=== PATIENT | male | born 1965 | race Caucasian/White ===

== ENCOUNTER 2018-02-10 19:13 | Emergency (ER) | payer MEDICAID ==
[2018-02-10 14:36] LABS: HEMATOCRIT 39.7 % (42.0-52.0); HEMOGLOBIN 13.7 g/dl (13.5-17.5); MEAN CORPUSCULAR HEMOGLOBIN 34.1 pg (27.0-33.0); MEAN CORPUSCULAR HGB CONC 34.5 g/dl (32.0-36.5); MEAN CORPUSCULAR VOLUME 98.8 fl (80.0-96.0); PLATELET COUNT, AUTOMATED 155 10^3/uL (150-450); RED BLOOD COUNT 4.02 10^6/uL (4.30-6.10); RED CELL DISTRIBUTION WIDTH 12.8 % (11.5-14.5); WHITE BLOOD COUNT 6.4 10^3/uL (4.0-10.0)
[2018-02-10 15:01] LABS: ALBUMIN 3.7 GM/DL (3.2-5.2); ALBUMIN/GLOBULIN RATIO 0.69 (1.00-1.93); ALKALINE PHOSPHATASE 62 U/L (45-117); ALT/SGPT 74 U/L (12-78); ANION GAP 7 MEQ/L (8-16); AST/SGOT 86 U/L (7-37); BILIRUBIN,DIRECT 0.2 MG/DL (0.0-0.2); BILIRUBIN,TOTAL 0.5 MG/DL (0.2-1.0); BLOOD UREA NITROGEN 3 MG/DL (7-18); CALCIUM LEVEL 9.1 MG/DL (8.5-10.1); CARBON DIOXIDE LEVEL 28 MEQ/L (21-32); CHLORIDE LEVEL 103 MEQ/L (98-107); CREATININE FOR GFR 0.65 MG/DL (0.70-1.30); ETHYL ALCOHOL (ETHANOL) 0.264 % (0.000-0.010); GLOMERULAR FILTRATION RATE > 60.0 (>56); GLUCOSE, FASTING 86 MG/DL (70-100); POTASSIUM SERUM 4.1 MEQ/L (3.5-5.1); SALICYLATE LEVEL 2.2 MG/DL (5.0-30.0); SODIUM LEVEL 138 MEQ/L (136-145); TOTAL PROTEIN 9.1 GM/DL (6.4-8.2)
[2018-02-10 15:05] LABS: ACETAMINOPHEN LEVEL < 2.0 UG/ML (10.0-30.0)
[2018-02-10 15:33] LABS: AMPHETAMINES LEVEL URINE NEGATIVE (NEGATIVE); BARBITURATES URINE NEGATIVE (NEGATIVE); BENZODIAZEPINES URINE NEGATIVE (NEGATIVE); CANNABINOIDS URINE POSITIVE (NEGATIVE); COCAINE METABOLITE URINE POSITIVE (NEGATIVE); METHADONE URINE NEGATIVE (NEGATIVE); OPIATES URINE NEGATIVE (NEGATIVE); PHENCYCLIDINE URINE NEGATIVE (NEGATIVE)
[2018-02-10 15:57] LABS: CPK CREATINE PHOSPHOKINASE 221 U/L (39-308)
[2018-02-10] MEDS: OXAZEPAM 15 MG CAP PO (18:50)
== END 2018-02-10 20:18 | disposition home or self-care (01) ==
LOC: M ED 19:13
DX: F10.129 Alcohol abuse with intoxication, unspecified (principal); F19.10 Other psychoactive substance abuse, uncomplicated
CPT/HCPCS: 93005

== ENCOUNTER 2018-03-19 14:38 | Emergency (ER) | payer MEDICAID | END 2018-03-19 17:22 | disposition home or self-care (01) | LOC: M ED 14:38 | DX: F31.9 Bipolar disorder, unspecified (principal); F10.11 Alcohol abuse, in remission; J44.9 Chronic obstructive pulmonary disease, unspecified; F17.210 Nicotine dependence, cigarettes, uncomplicated | CPT/HCPCS: 99284 ==

== ENCOUNTER 2018-07-19 08:07 | Emergency (ER) | payer OTHER ==
[~2018-07-19] VITALS: Ht 185.4 cm; Wt 83.9 kg
[2018-07-19] MEDS ORDERED: B121000T PO (08:35)
[2018-07-19] MEDS ORDERED: MELO15TA28 PO (08:35)
[2018-07-19 09:00] LABS: BASO # 0.1 10^3/uL (0.0-0.2); BASO % 1.6 % (0.0-1.0); EOS # 0.1 10^3/uL (0.0-0.50); HEMATOCRIT 40.9 % (42.0-52.0); HEMOGLOBIN 14.1 g/dl (13.5-17.5); LYMPH # 2.2 10^3/uL (1.5-4.5); LYMPH % 42.4 % (24.0-44.0); MEAN CORPUSCULAR HEMOGLOBIN 33.8 pg (27.0-33.0); MEAN CORPUSCULAR HGB CONC 34.5 g/dl (32.0-36.5); MEAN CORPUSCULAR VOLUME 98.1 fl (80.0-96.0); MONO # 0.4 10^3/uL (0.0-0.8); MONO % 8.4 % (0.0-5.0); NEUTROPHILS # 2.4 10^3/uL (1.8-7.7); NEUTROPHILS % 46.4 % (36.0-66.0); PLATELET COUNT, AUTOMATED 155 10^3/uL (150-450); RED BLOOD COUNT 4.17 10^6/uL (4.30-6.10); WHITE BLOOD COUNT 5.1 10^3/uL (4.0-10.0)
--- NOTE | 2018-07-19 09:13 | REP ---
Clinical: Altered mental status . Comparison: None . Findings: The ventricles, sulci, and cisterns are normal in position and appearance. Rudd-white differentiation is maintained. No acute intracranial hemorrhage, mass/mass effect, pathology or trauma/injury. No evidence for acute infarction. No extra-axial fluid collection. Calvarium is intact. Paranasal sinuses and mastoid air cells are clear. Impression: Normal noncontrast head CT. No evidence for acute intracranial pathology or trauma/injury. Electronically Signed by William Qureshi MD 07/19/2018 09:03 A
--- NOTE | 2018-07-19 09:15 | REP ---
Clinical: Trauma . Technique: Axial noncontrast images from the skull base to the thoracic inlet with coronal and sagittal re-formations Findings: Sagittal reconstructions suggest 2 mm of chronic retrolisthesis at the C3-4 level. Advanced degenerative disc osteophyte complex at C6-7 includes osteophytosis, subchondral sclerosis and heterogeneity with disc space narrowing and scattered uncovertebral facet hypertrophy. Moderate degenerative changes are noted throughout the remainder of the cervical spine including marginal spurring with minimal endplate sclerosis. There is no evidence for acute fracture / compression injury or subluxation. Spinal canal is patent. Posterior elements are intact. Paravertebral soft tissues are normal. Impression: Multilevel degenerative spondylosis. No evidence for acute trauma/injury. Electronically Signed by William Qureshi MD 07/19/2018 09:06 A
--- NOTE | 2018-07-19 09:18 | REP ---
Clinical: Trauma. Technique: AP, lateral, bilateral oblique views of the left ankle. Findings: Comminuted fracture dislocation identified of the distal tibial and fibular diaphyses with mild displacement and angulation. Impression: Comminuted fracture dislocation of the distal tibial and fibular diaphyses. Electronically Signed by William Qureshi MD 07/19/2018 09:09 A
--- NOTE | 2018-07-19 09:20 | REP ---
Clinical: Trauma. Technique: AP and lateral views of the proximal to mid tibia / fibula. Findings: In conjunction with ankle radiograph series, a comminuted displaced fractures of the distal tibial and fibular diaphyses are identified. Impression: Comminuted fracture dislocation of the distal tibial and fibular diaphyses. Electronically Signed by William Qureshi MD 07/19/2018 09:12 A
--- NOTE | 2018-07-19 09:22 | REP ---
Clinical: Trauma . Comparison: None . Findings: The mediastinum and cardiac silhouette are stable and within normal limits for portable technique. The lung altamirano are clear without acute consolidation, effusion, or pneumothorax. Subtle right rib fractures of indeterminate age requires correlation. Impression: No acute mediastinal or pleuroparenchymal process. Subtle right rib fractures of indeterminate age. Electronically Signed by William Qureshi MD 07/19/2018 09:14 A
[2018-07-19 09:36] LABS: ACETAMINOPHEN LEVEL < 2.0 UG/ML (10.0-30.0); ALT/SGPT 88 U/L (12-78); BILIRUBIN,DIRECT < 0.1 MG/DL (0.0-0.2); BILIRUBIN,TOTAL 0.4 MG/DL (0.2-1.0); BLOOD UREA NITROGEN 5 MG/DL (7-18); CALCIUM LEVEL 8.3 MG/DL (8.5-10.1); CARBON DIOXIDE LEVEL 25 MEQ/L (21-32); CHLORIDE LEVEL 100 MEQ/L (98-107); CREATININE FOR GFR 0.69 MG/DL (0.70-1.30); ETHYL ALCOHOL (ETHANOL) 0.384 % (0.000-0.010); GLOMERULAR FILTRATION RATE > 60.0 (>56); GLUCOSE, FASTING 89 MG/DL (70-100); POTASSIUM SERUM 4.3 MEQ/L (3.5-5.1); SALICYLATE LEVEL 2.8 MG/DL (5.0-30.0); SODIUM LEVEL 136 MEQ/L (136-145); TOTAL PROTEIN 8.4 GM/DL (6.4-8.2)
[2018-07-19] MEDS ORDERED: NS 1,000 ML IV SCH (09:45)
[2018-07-19 11:38] VITALS: BP 131/80
[2018-07-19 12:14] LABS: AMPHETAMINES LEVEL URINE NEGATIVE (NEGATIVE); BARBITURATES URINE NEGATIVE (NEGATIVE); BENZODIAZEPINES URINE NEGATIVE (NEGATIVE); CANNABINOIDS URINE POSITIVE (NEGATIVE); COCAINE METABOLITE URINE POSITIVE (NEGATIVE); METHADONE URINE NEGATIVE (NEGATIVE); OPIATES URINE NEGATIVE (NEGATIVE); PHENCYCLIDINE URINE NEGATIVE (NEGATIVE)
== END 2018-07-19 11:43 | disposition short-term general hospital (02) ==
LOC: EDBD 08:07 → M ED 08:07
DX: S82.832A Other fracture of upper and lower end of left fibula, initial encounter for closed fracture (principal); W01.0XXA Fall on same level from slipping, tripping and stumbling without subsequent striking against object, initial encounter; Y92.481 Parking lot as the place of occurrence of the external cause; Y90.1 Blood alcohol level of 20-39 mg/100 ml; J44.9 Chronic obstructive pulmonary disease, unspecified; F10.10 Alcohol abuse, uncomplicated; F17.210 Nicotine dependence, cigarettes, uncomplicated
CPT/HCPCS: 36415; 70450; 71045; 72125; 73590; 73610; 80048; 80076; 80307; 84443; 85025; 93041; 94760; 99285; G0480

== ENCOUNTER 2018-11-02 18:51 | Emergency (ER) | payer OTHER ==
[~2018-11-02] VITALS: Ht 182.9 cm; Wt 104.5 kg
[~2018-11-02 18:51] MED LIST: B121000T PO; MELO15TA28 PO
[2018-11-02] MEDS ORDERED: GABA-843 (18:56)
[2018-11-02] MEDS ORDERED: KETOROLAC 60 MG/2 ML VIAL (J1885) IM ONE (19:45)
[2018-11-02 20:29] VITALS: BP 145/81
--- NOTE | 2018-11-03 05:08 | REP ---
Clinical: Pain with recent surgery. Technique: AP and lateral views of the left tibia / fibula. Findings: Healing fractures involving the distal tibial and fibular shafts with callus formation and periosteal reaction noted. Orthopedic hardware appears to be in satisfactory position. Age-related degenerative changes at the knee and ankle joint noted. Impression: Appropriate healing. No obvious acute findings. Electronically Signed by William Qureshi MD 11/03/2018 04:59 A
== END 2018-11-02 20:36 | disposition left against medical advice (07) ==
LOC: M ED 18:51
DX: S82.832D Other fracture of upper and lower end of left fibula, subsequent encounter for closed fracture with routine healing (principal); S82.302D Unspecified fracture of lower end of left tibia, subsequent encounter for closed fracture with routine healing; M17.12 Unilateral primary osteoarthritis, left knee; M19.072 Primary osteoarthritis, left ankle and foot; R05 Cough; F17.210 Nicotine dependence, cigarettes, uncomplicated; Z79.899 Other long term (current) drug therapy
CPT/HCPCS: 73590; 96372; 99281; J1885

== ENCOUNTER → 2018-11-26 | Outpatient (CLI) | payer MEDICAID ==
[~2018-11-26] MED LIST changes: +GABA-843
== END ==
LOC: M OUTALCOH 08:40
PROVIDERS: ATTEND Psychiatry & Neurology Psychiatry
DX: F10.20 Alcohol dependence, uncomplicated (principal)

== ENCOUNTER 2018-12-03 10:08 | Outpatient (RCR) | payer MEDICAID | END 2018-12-14 | LOC: M OUTALCOH 10:08 | PROVIDERS: ATTEND Psychiatry & Neurology Psychiatry | DX: F10.20 Alcohol dependence, uncomplicated (principal) ==

== ENCOUNTER 2022-11-09 00:17 | Emergency (ER) | payer MEDICAID ==
[~2022-11-09] VITALS: Ht 182.9 cm; Wt 81.8 kg
[~2022-11-09 00:17] MED LIST changes: +GABA-282; -GABA-843
[2022-11-09 00:23] VITALS: BP_SYST 140
== END 2022-11-09 03:13 | disposition left against medical advice (07) ==
LOC: M ED 00:17 → EDBD 00:17 → M ED 03:13
DX: G47.00 Insomnia, unspecified (principal); Z53.21 Procedure and treatment not carried out due to patient leaving prior to being seen by health care provider

== ENCOUNTER 2022-12-13 09:22 | Inpatient (IN) | payer MEDICAID, OTHER ==
[~2022-12-13] VITALS: Ht 182.9 cm; Wt 83.6 kg
[~2022-12-13 09:22] MED LIST changes: +FOLIC ACID 1MG TAB PO SCH; +MULTIVITAMINS/MINERALS THERAP 1 TAB PO SCH; +THIAMINE 100 MG TAB PO SCH
[2022-12-13 09:50] LABS: VENOUS BASE EXCESS 1.9 (-2.0-2.0); VENOUS HCO3 26.2 MMOL/L (23.0-27.0); VENOUS O2 SATURATION 79.4 % (60.0-80.0); VENOUS PARTIAL PRESSURE CO2 40.1 mmHg (38.0-50.0); VENOUS PARTIAL PRESSURE O2 47.5 mmHg (30.0-50.0); VENOUS PH 7.433 UNITS (7.330-7.430); VENOUS STANDARD HCO3 25.7 MMOL/L; VENOUS TOTAL CO2 27.4 MMOL/L (24.0-28.0)
[2022-12-13 09:55] LABS: BASO # 0.1 10^3/uL (0.0-0.2); BASO % 0.4 % (0.0-1.0); EOS % 0.1 % (0.0-3.0); HEMATOCRIT 36.9 % (42.0-52.0); HEMOGLOBIN 12.7 g/dl (13.5-17.5); LYMPH # 1.4 10^3/uL (1.5-5.0); LYMPH % 8.9 % (24.0-44.0); MEAN CORPUSCULAR HEMOGLOBIN 32.2 pg (27.0-33.0); MEAN CORPUSCULAR HGB CONC 34.4 g/dl (32.0-36.5); MEAN CORPUSCULAR VOLUME 93.4 fl (80.0-96.0); MONO # 1.1 10^3/uL (0.0-0.8); MONO % 7.5 % (2.0-8.0); NEUTROPHILS # 12.6 10^3/uL (1.5-8.5); NEUTROPHILS % 82.4 % (36.0-66.0); PLATELET COUNT, AUTOMATED 436 10^3/uL (150-450); RED BLOOD COUNT 3.95 10^6/uL (4.30-6.10); WHITE BLOOD COUNT 15.2 10^3/uL (4.0-10.0)
[2022-12-13 10:19] LABS: OSMOLALITY SERUM 280 MOSM/KG (275-295)
[2022-12-13 10:23] LABS: ALBUMIN 1.7 G/DL (3.2-5.2); ALKALINE PHOSPHATASE 74 U/L (46-116); ALT/SGPT 46 U/L (7.0-40); AST/SGOT 100 U/L (<34); BILIRUBIN,DIRECT 0.2 MG/DL (<0.4); BILIRUBIN,TOTAL 0.4 MG/DL (0.3-1.2); BLOOD UREA NITROGEN 7 MG/DL (9-23); CALCIUM LEVEL 8.2 MG/DL (8.5-10.1); CARBON DIOXIDE LEVEL 26 MMOL/L (20-31); CHLORIDE LEVEL 95 MMOL/L (98-107); GLOMERULAR FILTRATION RATE > 60.0 (>56); GLUCOSE, FASTING 111 MG/DL (60-100); POTASSIUM SERUM 3.1 MMOL/L (3.5-5.1); SODIUM LEVEL 128 MMOL/L (136-145); TOTAL PROTEIN 6.6 G/DL (5.7-8.2)
[2022-12-13 10:28] LABS: THYROID STIMULATING HORMONE 1.317 uIU/ML (0.55-4.78)
[2022-12-13] MEDS ORDERED: METOPROLOL TART 25 MG TABLET PO ONE (10:45)
[2022-12-13] MEDS: METOPROLOL 5 MG/5 ML VIAL IV SCH ×3 (11:04→14:57)
[2022-12-13 11:13] LABS: MAGNESIUM LEVEL 0.9 MG/DL (1.8-2.4)
[2022-12-13] MEDS ORDERED: MAG SULF 1GM/100ML (MAG RUN) 1 GM in IV 1 EA IV ONE ×3 (11:15→14:55)
[2022-12-13] MEDS ORDERED: LORazepam 2 MG TAB PO PRN (11:45)
[2022-12-13] MEDS ORDERED: NS 1,000 ML IV SCH (11:45)
[2022-12-13] MEDS ORDERED: POTASSIUM CHLORIDE 10MEQ SR TABLET PO ONE ×2 (11:50→14:55)
[2022-12-13] MEDS ORDERED: MED REC IN PROGRESS XX SCH (12:05)
[2022-12-13] MEDS ORDERED: MED REC CURRENTLY UNOBTAINABLE XX SCH (12:15)
[2022-12-13] MEDS ORDERED: ACETAMINOPHEN TAB 650MG DOSE (2X325MG) PO PRN (12:25)
[2022-12-13] MEDS ORDERED: ISOVUE-370 76% 100ML VIAL As Ordered ONE (12:36)
[2022-12-13] MEDS ORDERED: GABA600T4 PO (12:40)
[2022-12-13] MEDS ORDERED: VENTAER INH (12:40)
[2022-12-13] MEDS ORDERED: HOME MED LIST COMPLETE! XX SCH (12:45)
[2022-12-13] MEDS ORDERED: IPRATROPIUM 0.5MG/ALBUTEROL 2.5MG INH SOL UD 3ML (DUONEB) NEB PRN (12:45)
[2022-12-13] MEDS ORDERED: cefTRIAXone SOD 1 GM in D5W MINI-BAG PLUS 50 ML IV SCH (13:00)
[2022-12-13] MEDS: IPRATROPIUM 0.5MG/ALBUTEROL 2.5MG INH SOL UD 3ML (DUONEB) NEB SCH ×2 (13:04→20:34)
[2022-12-13 13:20] LABS: PHOSPHORUS LEVEL 3.5 MG/DL (2.5-4.9)
[2022-12-13 13:43] LABS: INR 1.16
[2022-12-13 13:44] LABS: PARTIAL THROMBOPLASTIN TIME 28.6 SECONDS (24.8-34.2)
[2022-12-13] MEDS ORDERED: ENOXAPARIN 100MG/1ML SYRINGE (J1650 PER 10MG) SC ONE (14:00)
[2022-12-13] MEDS ORDERED: OXAZEPAM 15MG CAP PO SCH (14:00)
[2022-12-13] MEDS: MAG SULF 1GM/100ML (MAG RUN) 1 GM in IV 1 EA IV SCH ×3 (14:20→16:30)
[2022-12-13] MEDS: NS 1,000 ML IV SCH (14:22)
[2022-12-13 14:48] LABS: BLOOD UREA NITROGEN 8 MG/DL (9-23); CARBON DIOXIDE LEVEL 26 MMOL/L (20-31); CHLORIDE LEVEL 94 MMOL/L (98-107); CREATININE FOR GFR 0.34 MG/DL (0.70-1.30); GLOMERULAR FILTRATION RATE > 60.0 (>56); GLUCOSE, FASTING 110 MG/DL (60-100); MAGNESIUM LEVEL 1.4 MG/DL (1.8-2.4); POTASSIUM SERUM 3.2 MMOL/L (3.5-5.1); SODIUM LEVEL 128 MMOL/L (136-145)
[2022-12-13 15:08] LABS: PERCENT SATURATION 9.2 % (19.7-50.0)
[2022-12-13 15:09] LABS: FERRITIN 449.4 NG/ML (10.5-307.3)
[2022-12-13 15:10] LABS: FOLATE 20.36 NG/ML (>5.4)
[2022-12-13] MEDS ORDERED: PIPERACILLIN/TAZOBACTAM SOD 3.375 GM in D5W MINI-BAG PLUS 50 ML IV SCH (15:15)
[2022-12-13] MEDS: DOXYCYCLINE HYCLATE 100 MG in D5W MINI-BAG PLUS 100 ML IV SCH (15:18)
[2022-12-13] MEDS: GABAPENTIN 400MG CAP PO SCH ×2 (16:00→20:25)
[2022-12-13 16:27] LABS: HEPATITIS B SURFACE ANTIGEN NEGATIVE (NEGATIVE)
[2022-12-13] MEDS: PIPERACILLIN/TAZOBACTAM SOD 4.5 GM in D5W MINI-BAG PLUS 50 ML IV SCH ×2 (16:30→23:00)
[2022-12-13 16:48] LABS: HEPATITIS C VIRUS ABY INDEX 0.13 INDEX (<0.8)
[2022-12-13 16:49] LABS: HEPATITIS B CORE ANTIBODY IGM NEGATIVE (NEGATIVE)
[2022-12-13 17:06] LABS: ABG BASE EXCESS 3.8 (-2.0-2.0); ABG HCO3 26.9 MMOL/L (22.0-26.0); ABG O2 SATURATION 94.8 % (95.0-99.0); ABG PARTIAL PRESSURE CO2 35.1 mmHg (35.0-45.0); ABG STANDARD HCO3 27.8 MMOL/L. (22.0-26.0); ABG pH (ARTERIAL) 7.502 UNITS (7.350-7.450)
[2022-12-13] MEDS ORDERED: METOPROLOL TART 25 MG TABLET PO SCH (18:00)
[2022-12-13 19:10] VITALS: BP 111/73; TEMP 98.6; O2SAT 90
[2022-12-13 19:13] LABS: BLOOD UREA NITROGEN 7 MG/DL (9-23); CALCIUM LEVEL 7.3 MG/DL (8.5-10.1); CARBON DIOXIDE LEVEL 28 MMOL/L (20-31); CHLORIDE LEVEL 97 MMOL/L (98-107); CREATININE FOR GFR 0.41 MG/DL (0.70-1.30); GLOMERULAR FILTRATION RATE > 60.0 (>56); GLUCOSE, FASTING 114 MG/DL (60-100); MAGNESIUM LEVEL 2.2 MG/DL (1.8-2.4); POTASSIUM SERUM 3.5 MMOL/L (3.5-5.1); SODIUM LEVEL 131 MMOL/L (136-145)
[2022-12-13] MEDS: METOPROLOL TART 12.5 MG PER 1/2 TAB PO SCH (20:23)
[2022-12-13 20:24] VITALS: BP 104/58
[2022-12-13] MEDS: THIAMINE 100 MG TAB PO SCH (21:05)
[2022-12-13] MEDS: LACTOBACILLUS ACIDOPHILUS CAP (BACID) PO SCH (21:05)
[2022-12-13 23:50] VITALS: BP 105/67; TEMP 97; O2SAT 95
[2022-12-14] MEDS: IPRATROPIUM 0.5MG/ALBUTEROL 2.5MG INH SOL UD 3ML (DUONEB) NEB SCH ×4 (00:50→19:56)
[2022-12-14] MEDS: ENOXAPARIN 80MG/0.8ML SYRINGE (J1650 PER 10MG) SC SCH ×2 (02:00→13:28)
[2022-12-14] MEDS: NS 1,000 ML IV SCH ×3 (04:13→22:03)
[2022-12-14 04:17] VITALS: BP 133/76; TEMP 97.4; O2SAT 93
[2022-12-14] MEDS: DOXYCYCLINE HYCLATE 100 MG in D5W MINI-BAG PLUS 100 ML IV SCH (05:05)
[2022-12-14] MEDS: METOPROLOL TART 12.5 MG PER 1/2 TAB PO SCH ×5 (06:31→23:50)
[2022-12-14] MEDS: PIPERACILLIN/TAZOBACTAM SOD 4.5 GM in D5W MINI-BAG PLUS 50 ML IV SCH ×4 (06:32→23:50)
[2022-12-14 07:08] LABS: BASO # 0.1 10^3/uL (0.0-0.2); BASO % 0.5 % (0.0-1.0); EOS % 0.1 % (0.0-3.0); HEMATOCRIT 33.8 % (42.0-52.0); HEMOGLOBIN 11.3 g/dl (13.5-17.5); LYMPH % 8.2 % (24.0-44.0); MEAN CORPUSCULAR HGB CONC 33.4 g/dl (32.0-36.5); MEAN CORPUSCULAR VOLUME 95.8 fl (80.0-96.0); MONO # 0.9 10^3/uL (0.0-0.8); MONO % 6.7 % (2.0-8.0); NEUTROPHILS # 10.6 10^3/uL (1.5-8.5); NEUTROPHILS % 83.9 % (36.0-66.0); PLATELET COUNT, AUTOMATED 394 10^3/uL (150-450); RED BLOOD COUNT 3.53 10^6/uL (4.30-6.10); WHITE BLOOD COUNT 12.7 10^3/uL (4.0-10.0)
[2022-12-14 07:57] VITALS: BP 112/65; TEMP 97.5; O2SAT 94
[2022-12-14 07:59] LABS: ALBUMIN 1.7 G/DL (3.2-5.2); ALKALINE PHOSPHATASE 63 U/L (46-116); ALT/SGPT 43 U/L (7.0-40); AST/SGOT 52 U/L (<34); BILIRUBIN,TOTAL 0.4 MG/DL (0.3-1.2); BLOOD UREA NITROGEN 7 MG/DL (9-23); CALCIUM LEVEL 7.4 MG/DL (8.5-10.1); CARBON DIOXIDE LEVEL 28 MMOL/L (20-31); CHLORIDE LEVEL 101 MMOL/L (98-107); CREATININE FOR GFR 0.43 MG/DL (0.70-1.30); GLOMERULAR FILTRATION RATE > 60.0 (>56); GLUCOSE, FASTING 119 MG/DL (60-100); MAGNESIUM LEVEL 1.2 MG/DL (1.8-2.4); POTASSIUM SERUM 3.7 MMOL/L (3.5-5.1); SODIUM LEVEL 133 MMOL/L (136-145)
[2022-12-14] MEDS: FOLIC ACID 1MG TAB PO SCH (09:59)
[2022-12-14] MEDS: THIAMINE 100 MG TAB PO SCH ×2 (09:59→20:42)
[2022-12-14] MEDS: MULTIVITAMINS/MINERALS THERAP 1 TAB PO SCH (09:59)
[2022-12-14] MEDS: GABAPENTIN 400MG CAP PO SCH ×3 (09:59→20:42)
[2022-12-14] MEDS: PANTOPRAZOLE 40MG TAB (PROTONIX) PO SCH (09:59)
[2022-12-14] MEDS: LACTOBACILLUS ACIDOPHILUS CAP (BACID) PO SCH ×2 (09:59→18:04)
[2022-12-14] MEDS: MAG SULF 1GM/100ML (MAG RUN) 1 GM in IV 1 EA IV SCH ×3 (10:00→13:28)
[2022-12-14 11:59] VITALS: BP 115/72; TEMP 97.6; O2SAT 94
[2022-12-14 15:57] VITALS: BP 110/64; TEMP 97.4; O2SAT 96
[2022-12-14 16:18] LABS: BLOOD UREA NITROGEN 6 MG/DL (9-23); CALCIUM LEVEL 7.3 MG/DL (8.5-10.1); CARBON DIOXIDE LEVEL 30 MMOL/L (20-31); CHLORIDE LEVEL 104 MMOL/L (98-107); CREATININE FOR GFR 0.43 MG/DL (0.70-1.30); GLOMERULAR FILTRATION RATE > 60.0 (>56); GLUCOSE, FASTING 97 MG/DL (60-100); MAGNESIUM LEVEL 1.7 MG/DL (1.8-2.4); POTASSIUM SERUM 3.2 MMOL/L (3.5-5.1); SODIUM LEVEL 135 MMOL/L (136-145)
[2022-12-14] MEDS: MAGNESIUM OXIDE 400MG TAB (MAG-OX) PO SCH ×2 (16:32→20:42)
[2022-12-14] MEDS ORDERED: MAG SULF 1GM/100ML (MAG RUN) 1 GM in IV 1 EA IV ONE (16:50)
[2022-12-14] MEDS ORDERED: POTASSIUM CHLORIDE 10MEQ SR TABLET PO ONE (17:15)
[2022-12-14 19:41] VITALS: BP 120/66; TEMP 97.8; O2SAT 94
[2022-12-14] MEDS: DOXYCYCLINE HYCLATE 100MG TABLET PO SCH (20:42)
[2022-12-14 23:31] VITALS: BP 114/63; TEMP 97.7; O2SAT 92
[2022-12-15] VITALS (17 sets, daily range): BP systolic 141–162; BP diastolic 65–84; TEMP 96.8–98.1; O2SAT 92–98
[2022-12-15] MEDS: ENOXAPARIN 80MG/0.8ML SYRINGE (J1650 PER 10MG) SC SCH ×2 (01:26→14:24)
[2022-12-15] MEDS: IPRATROPIUM 0.5MG/ALBUTEROL 2.5MG INH SOL UD 3ML (DUONEB) NEB SCH ×4 (02:21→19:17)
[2022-12-15] MEDS: PIPERACILLIN/TAZOBACTAM SOD 4.5 GM in D5W MINI-BAG PLUS 50 ML IV SCH ×4 (05:19→22:45)
[2022-12-15] MEDS: METOPROLOL TART 12.5 MG PER 1/2 TAB PO SCH ×3 (05:26→18:36)
[2022-12-15 06:30] LABS: BASO # 0.1 10^3/uL (0.0-0.2); EOS # 0.1 10^3/uL (0.0-0.5); EOS % 0.6 % (0.0-3.0); HEMOGLOBIN 10.9 g/dl (13.5-17.5); LYMPH # 1.3 10^3/uL (1.5-5.0); LYMPH % 14.2 % (24.0-44.0); MEAN CORPUSCULAR HEMOGLOBIN 32.1 pg (27.0-33.0); MEAN CORPUSCULAR VOLUME 97.1 fl (80.0-96.0); MONO # 0.6 10^3/uL (0.0-0.8); MONO % 6.5 % (2.0-8.0); NEUTROPHILS # 6.8 10^3/uL (1.5-8.5); PLATELET COUNT, AUTOMATED 373 10^3/uL (150-450); WHITE BLOOD COUNT 8.8 10^3/uL (4.0-10.0)
[2022-12-15 07:01] LABS: ALBUMIN 1.4 G/DL (3.2-5.2); ALKALINE PHOSPHATASE 56 U/L (46-116); ALT/SGPT 45 U/L (7.0-40); AST/SGOT 79 U/L (<34); BILIRUBIN,TOTAL 0.3 MG/DL (0.3-1.2); BLOOD UREA NITROGEN < 5 MG/DL (9-23); CALCIUM LEVEL 7.9 MG/DL (8.5-10.1); CARBON DIOXIDE LEVEL 26 MMOL/L (20-31); CHLORIDE LEVEL 101 MMOL/L (98-107); CREATININE FOR GFR 0.41 MG/DL (0.70-1.30); GLOMERULAR FILTRATION RATE > 60.0 (>56); GLUCOSE, FASTING 144 MG/DL (60-100); MAGNESIUM LEVEL 1.1 MG/DL (1.8-2.4); POTASSIUM SERUM 3.3 MMOL/L (3.5-5.1); SODIUM LEVEL 135 MMOL/L (136-145); TOTAL PROTEIN 5.6 G/DL (5.7-8.2)
[2022-12-15] MEDS ORDERED: POTASSIUM CHLORIDE 10MEQ SR TABLET PO ONE (08:10)
[2022-12-15] MEDS ORDERED: FERROUS SULFATE 300MG/5ML UDC LIQUID PO SCH (09:00)
[2022-12-15] MEDS ORDERED: PANTOPRAZOLE 40MG TAB (PROTONIX) PO SCH (09:00)
[2022-12-15] MEDS: PANTOPRAZOLE 40MG TAB (PROTONIX) PO SCH (09:05)
[2022-12-15] MEDS: THIAMINE 100 MG TAB PO SCH ×2 (09:05→20:05)
[2022-12-15] MEDS: LACTOBACILLUS ACIDOPHILUS CAP (BACID) PO SCH ×2 (09:05→18:36)
[2022-12-15] MEDS: GABAPENTIN 400MG CAP PO SCH ×3 (09:05→20:05)
[2022-12-15] MEDS: MULTIVITAMINS/MINERALS THERAP 1 TAB PO SCH (09:05)
[2022-12-15] MEDS: FOLIC ACID 1MG TAB PO SCH (09:05)
[2022-12-15] MEDS: DOXYCYCLINE HYCLATE 100MG TABLET PO SCH ×2 (09:06→20:05)
[2022-12-15] MEDS: MAG SULF 1GM/100ML (MAG RUN) 1 GM in IV 1 EA IV SCH ×5 (09:06→20:05)
[2022-12-15] MEDS: MAGNESIUM OXIDE 400MG TAB (MAG-OX) PO SCH ×3 (09:06→20:05)
[2022-12-15] MEDS: FERROUS SULFATE 325MG TAB PO SCH (12:54)
[2022-12-15] MEDS: KCL 10MEQ/100ML SWI (KRUN) 10 MEQ in IV 1 EA IV SCH ×2 (14:05→17:23)
[2022-12-15] MEDS: LORazepam 2 MG TAB PO PRN (14:25)
[2022-12-15 15:32] LABS: BLOOD UREA NITROGEN < 5 MG/DL (9-23); CALCIUM LEVEL 7.9 MG/DL (8.5-10.1); CARBON DIOXIDE LEVEL 26 MMOL/L (20-31); CHLORIDE LEVEL 101 MMOL/L (98-107); CREATININE FOR GFR 0.43 MG/DL (0.70-1.30); GLOMERULAR FILTRATION RATE > 60.0 (>56); GLUCOSE, FASTING 129 MG/DL (60-100); POTASSIUM SERUM 3.7 MMOL/L (3.5-5.1); SODIUM LEVEL 134 MMOL/L (136-145)
[2022-12-15] MEDS ORDERED: KCL 10MEQ/100ML SWI (KRUN) 10 MEQ in IV 1 EA IV SCH (17:00)
[2022-12-15] MEDS ORDERED: MAG SULF 1GM/100ML (MAG RUN) 1 GM in IV 1 EA IV ONE (19:00)
[2022-12-15] MEDS: NS 1,000 ML IV SCH (20:04)
[2022-12-15] MEDS ORDERED: KCL 10MEQ/100ML SWI (KRUN) 10 MEQ in IV 1 EA IV ONE (21:00)
[2022-12-16] MEDS: METOPROLOL TART 12.5 MG PER 1/2 TAB PO SCH ×3 (00:05→12:02)
[2022-12-16] MEDS: LORazepam 2 MG TAB PO PRN (00:05)
[2022-12-16] MEDS: IPRATROPIUM 0.5MG/ALBUTEROL 2.5MG INH SOL UD 3ML (DUONEB) NEB SCH ×3 (01:31→14:00)
[2022-12-16] MEDS: PIPERACILLIN/TAZOBACTAM SOD 4.5 GM in D5W MINI-BAG PLUS 50 ML IV SCH (04:26)
[2022-12-16 04:27] VITALS: BP 146/76; TEMP 98; O2SAT 93
[2022-12-16 05:02] LABS: BASO # 0.1 10^3/uL (0.0-0.2); BASO % 1.4 % (0.0-1.0); EOS # 0.1 10^3/uL (0.0-0.5); EOS % 1.4 % (0.0-3.0); HEMATOCRIT 35.4 % (42.0-52.0); HEMOGLOBIN 11.7 g/dl (13.5-17.5); LYMPH # 1.6 10^3/uL (1.5-5.0); LYMPH % 19.3 % (24.0-44.0); MEAN CORPUSCULAR HEMOGLOBIN 31.9 pg (27.0-33.0); MEAN CORPUSCULAR HGB CONC 33.1 g/dl (32.0-36.5); MEAN CORPUSCULAR VOLUME 96.5 fl (80.0-96.0); MONO # 0.7 10^3/uL (0.0-0.8); MONO % 8.5 % (2.0-8.0); NEUTROPHILS # 5.8 10^3/uL (1.5-8.5); PLATELET COUNT, AUTOMATED 399 10^3/uL (150-450); RED BLOOD COUNT 3.67 10^6/uL (4.30-6.10); WHITE BLOOD COUNT 8.4 10^3/uL (4.0-10.0)
[2022-12-16 05:23] LABS: ALBUMIN 1.6 G/DL (3.2-5.2); ALKALINE PHOSPHATASE 62 U/L (46-116); ALT/SGPT 65 U/L (7.0-40); AST/SGOT 108 U/L (<34); BILIRUBIN,TOTAL 0.4 MG/DL (0.3-1.2); BLOOD UREA NITROGEN < 5 MG/DL (9-23); CALCIUM LEVEL 8.4 MG/DL (8.5-10.1); CARBON DIOXIDE LEVEL 26 MMOL/L (20-31); CHLORIDE LEVEL 102 MMOL/L (98-107); CREATININE FOR GFR 0.41 MG/DL (0.70-1.30); GLOMERULAR FILTRATION RATE > 60.0 (>56); GLUCOSE, FASTING 78 MG/DL (60-100); MAGNESIUM LEVEL 1.4 MG/DL (1.8-2.4); POTASSIUM SERUM 4.3 MMOL/L (3.5-5.1); SODIUM LEVEL 133 MMOL/L (136-145); TOTAL PROTEIN 6.2 G/DL (5.7-8.2)
[2022-12-16] MEDS ORDERED: LIDOCAINE 1% MDV 20ML VIAL SC ONE (07:25)
[2022-12-16] MEDS ORDERED: LIDOCAINE 1% MDV 20ML VIAL As Ordered ONE (07:28)
[2022-12-16] MEDS: NS 1,000 ML IV SCH (07:59)
[2022-12-16] MEDS: MAG SULF 1GM/100ML (MAG RUN) 1 GM in IV 1 EA IV SCH ×4 (07:59→12:01)
[2022-12-16 08:00] VITALS: BP 152/93; TEMP 97.6; O2SAT 100
[2022-12-16] MEDS: MULTIVITAMINS/MINERALS THERAP 1 TAB PO SCH (08:16)
[2022-12-16] MEDS: LACTOBACILLUS ACIDOPHILUS CAP (BACID) PO SCH (08:16)
[2022-12-16] MEDS: FERROUS SULFATE 325MG TAB PO SCH (08:16)
[2022-12-16] MEDS: PANTOPRAZOLE 40MG TAB (PROTONIX) PO SCH (08:16)
[2022-12-16] MEDS: MAGNESIUM OXIDE 400MG TAB (MAG-OX) PO SCH (08:16)
[2022-12-16] MEDS: DOXYCYCLINE HYCLATE 100MG TABLET PO SCH (08:16)
[2022-12-16] MEDS: FOLIC ACID 1MG TAB PO SCH (08:16)
[2022-12-16] MEDS: GABAPENTIN 400MG CAP PO SCH (08:16)
[2022-12-16] MEDS: THIAMINE 100 MG TAB PO SCH (08:16)
[2022-12-16] MEDS ORDERED: ASPIRIN 81MG CHEW TABLET PO SCH ×2 (09:00)
[2022-12-16] MEDS ORDERED: AUGMENTIN 875 MG TAB PO SCH (09:00)
[2022-12-16 12:00] VITALS: BP 136/82; TEMP 97.4; O2SAT 94
[2022-12-16 12:02] VITALS: BP 136/82
[2022-12-16] MEDS ORDERED: MAGN400T2 PO (12:35)
[2022-12-16] MEDS ORDERED: RISATAB3 PO (12:35)
[2022-12-16] MEDS ORDERED: ASPI81CH8 PO (12:35)
[2022-12-16] MEDS ORDERED: THIA100TA PO (12:35)
[2022-12-16] MEDS ORDERED: METO1TAB87 PO (12:35)
[2022-12-16] MEDS ORDERED: FERR1TAB8 PO (12:35)
[2022-12-16] MEDS ORDERED: PANT40TA29 PO (12:35)
[2022-12-16] MEDS ORDERED: FOLI1TAB11 PO (12:35)
[2022-12-16] MEDS ORDERED: AMOX875T2 PO (12:35)
[2022-12-16] MEDS ORDERED: VITMTA PO (12:35)
[2022-12-16 15:00] VITALS: BP 125/87; TEMP 97; O2SAT 95
== END 2022-12-16 15:50 | disposition left against medical advice (07) | DRG 137 ==
LOC: M ED 09:22 → M ED INP 12:23 → ENRESERV 17:40 → M PCU 19:02
PROVIDERS: ADMIT Internal Medicine; ATTEND Internal Medicine
PROC: B246ZZZ Ultrasonography of Right and Left Heart (ICD-10-PCS; principal; 2022-12-15)
PROC: 0H96XZZ Drainage of Back Skin, External Approach (ICD-10-PCS; 2022-12-16)
DX: J85.2 Abscess of lung without pneumonia (principal); J96.01 Acute respiratory failure with hypoxia; I48.91 Unspecified atrial fibrillation; G62.9 Polyneuropathy, unspecified; E87.1 Hypo-osmolality and hyponatremia; K25.9 Gastric ulcer, unspecified as acute or chronic, without hemorrhage or perforation; L02.219 Cutaneous abscess of trunk, unspecified; F10.10 Alcohol abuse, uncomplicated; M19.90 Unspecified osteoarthritis, unspecified site; E87.6 Hypokalemia; G47.00 Insomnia, unspecified; J44.9 Chronic obstructive pulmonary disease, unspecified; F17.210 Nicotine dependence, cigarettes, uncomplicated; D64.9 Anemia, unspecified; Z66 Do not resuscitate; Z79.899 Other long term (current) drug therapy; Z20.822 Contact with and (suspected) exposure to COVID-19

== ENCOUNTER 2023-08-27 16:43 | Emergency (ER) | payer MEDICAID, OTHER ==
[~2023-08-27] VITALS: Ht 182.9 cm; Wt 85.0 kg
[~2023-08-27 16:43] MED LIST changes: +AMOX875T2 PO; +ASPI81CH8 PO; +FERR1TAB8 PO; +FOLI1TAB11 PO; -FOLIC ACID 1MG TAB PO SCH; +GABA600T4 PO; +MAGN400T2 PO; +METO1TAB87 PO; -MULTIVITAMINS/MINERALS THERAP 1 TAB PO SCH; +PANT40TA29 PO; +RISATAB3 PO; +THIA100TA PO; -THIAMINE 100 MG TAB PO SCH; +VENTAER INH; +VITMTA PO
[2023-08-27 17:01] VITALS: BP 149/88; TEMP 98.3; O2SAT 96
== END 2023-08-27 17:56 | disposition left against medical advice (07) ==
LOC: M ED 16:43
DX: Z53.21 Procedure and treatment not carried out due to patient leaving prior to being seen by health care provider (principal)

== ENCOUNTER 2023-11-30 00:21 | Emergency (ER) | payer OTHER ==
[2023-11-30 00:28] VITALS: TEMP 97.8
[2023-11-30 05:01] VITALS: BP 171/100; O2SAT 92
[2023-11-30] MEDS ORDERED: PERC5TAB12 PO (05:36)
[2023-11-30] MEDS: OXYCODONE/APAP 5MG/325MG(HOME DOSE PACK) PO ONE (05:54)
== END 2023-11-30 06:35 | disposition home or self-care (01) ==
LOC: M ED 00:21
DX: S22.41XA Multiple fractures of ribs, right side, initial encounter for closed fracture (principal); W10.8XXA Fall (on) (from) other stairs and steps, initial encounter; Y92.9 Unspecified place or not applicable; Y93.9 Activity, unspecified; Y99.9 Unspecified external cause status; F17.200 Nicotine dependence, unspecified, uncomplicated; F10.10 Alcohol abuse, uncomplicated; Z79.899 Other long term (current) drug therapy

== ENCOUNTER → 2024-04-01 | Outpatient (REF) ==
[~2024-04-01] MED LIST changes: +GABA-1172; +GABA-1490 PO; -GABA-282; -GABA600T4 PO; +PERC5TAB12 PO
== END ==
LOC: M PLAIMG 14:36
PROVIDERS: ATTEND Internal Medicine
DX: M79.605 Pain in left leg (principal); M25.562 Pain in left knee

== ENCOUNTER 2025-05-08 17:02 | Emergency (ER) | payer OTHER ==
[~2025-05-08] VITALS: Ht 182.9 cm; Wt 79.4 kg
[2025-05-08 20:35] VITALS: BP 122/64; TEMP 98.5; O2SAT 95
[2025-05-08 20:41] LABS: BASO # 0.0 10^3/uL (0.0-0.2); BASO % 0.8 % (0.0-1.0); EOS # 0.0 10^3/uL (0.0-0.5); EOS % 0.8 % (0.0-3.0); LYMPH # 1.3 10^3/uL (1.5-5.0); LYMPH % 27.5 % (24.0-44.0); MONO # 0.5 10^3/uL (0.0-0.8); MONO % 11.2 % (2.0-8.0); NEUTROPHILS # 2.8 10^3/uL (1.5-8.5); NEUTROPHILS % 59.5 % (36.0-66.0); PLATELET COUNT, AUTOMATED 229 10^3/uL (150-450)
[2025-05-08 21:15] LABS: ETHYL ALCOHOL (ETHANOL) < 0.003 % (0.000-0.010)
[2025-05-08 21:17] LABS: ALT/SGPT 143 U/L (7.0-40); AST/SGOT 143 U/L (<34); CALCIUM LEVEL 8.7 MG/DL (8.3-10.6); CARBON DIOXIDE LEVEL 28 MMOL/L (20-31); CHLORIDE LEVEL 104 MMOL/L (98-107); CREATININE FOR GFR 0.62 MG/DL (0.70-1.30); GLOMERULAR FILTRATION RATE > 90.0 (>49); POTASSIUM SERUM 3.7 MMOL/L (3.5-5.1); SODIUM LEVEL 140 MMOL/L (136-145)
[2025-05-08] MEDS ORDERED: SULF-7 PO (22:02)
[2025-05-08] MEDS ORDERED: CEPH500C PO (22:17)
[2025-05-08] MEDS: CEPHALEXIN 500 MG CAP PO ONE (22:24)
== END 2025-05-08 22:26 | disposition home or self-care (01) ==
LOC: M ED 17:02
DX: S51.802A Unspecified open wound of left forearm, initial encounter (principal); X58.XXXA Exposure to other specified factors, initial encounter; Y92.9 Unspecified place or not applicable; Y93.9 Activity, unspecified; Y99.9 Unspecified external cause status; F03.90 Unspecified dementia, unspecified severity, without behavioral disturbance, psychotic disturbance, mood disturbance, and anxiety; J44.9 Chronic obstructive pulmonary disease, unspecified; F17.200 Nicotine dependence, unspecified, uncomplicated; F10.10 Alcohol abuse, uncomplicated; Z88.8 Allergy status to other drugs, medicaments and biological substances